=== PATIENT | female | born 1985 | race Caucasian/White ===

== ENCOUNTER 2017-11-30 12:59 | Outpatient (CLI) | payer BC ==
[~2017-11-30] VITALS: Ht 162.6 cm; Wt 81.4 kg
[2017-11-30] MEDS ORDERED: BUPIVACAINE/PF 0.5% ONE (13:32)
[2017-11-30 14:56] LABS: MICROSCOPIC NOT IND
[2017-11-30 15:34] VITALS: BP 118/68
== END 2017-11-30 15:33 | disposition home or self-care (01) ==
LOC: LDOP 12:59
PROVIDERS: ATTEND Obstetrics & Gynecology
DX: O42.912 Preterm premature rupture of membranes, unspecified as to length of time between rupture and onset of labor, second trimester (principal); Z3A.23 23 weeks gestation of pregnancy
CPT/HCPCS: 59025; 76815; 81003; 84112; 87086; 89060; 99201; G0463; Q0114